=== PATIENT | female | born 1940 | race Caucasian/White ===

== ENCOUNTER 2025-01-30 16:48 | Emergency (ER) | payer MEDICARE, SELFPAY ==
[2025-01-30] VITALS (10 sets, daily range): BP systolic 120–242; BP diastolic 88–125; PULSE 72–92; RESP 13–28; TEMP 36.2; O2SAT 97–98
--- NOTE | 2025-01-30 16:49 | DI.RAD.S_ITS ---
PROCEDURE: XR CHEST 1V INDICATIONS: chest pain TECHNIQUE: One view of the chest was acquired. COMPARISON: None. FINDINGS: Surgical changes and devices: None. Lungs and pleura: Lungs are clear. Emphysematous change. No pleural effusions or pneumothorax. Mediastinum: Mediastinal contours appear normal. Heart size is normal. Bones and chest wall: No suspicious bony lesions. Overlying soft tissues appear unremarkable. IMPRESSION: COPD. No evidence acute pulmonary process. Dictated by: Albert Dias M.D. on 01/30/2025 at 18:07 Approved by: Albert Dias M.D. on 01/30/2025 at 18:07
--- NOTE | 2025-01-30 16:55 | ED_ITS ---
HPI - Chest Pain <Jesus Lou DO Last Filed: 01/30/25 17:02> General Chief Complaint: Chest Pain Stated Complaint: Chest px Time Seen by Provider: 01/30/25 16:49 History of Present Illness HPI narrative: 82-year-old female without any significant past medical history comes into the ED from home for evaluation of chest pain, she states it has been ongoing intermittent for the past several days, states that she currently is not having any pain now, states it started spontaneously last for only a few seconds, he denies any other symptoms at this time such as headache visual disturbances shortness breath fever chills nausea vomiting abdominal pain or any other GI/ symptoms. Related Data Previous Rx's Medication Instructions Recorded cephalexin 500 mg capsule 500 mg PO TID #9 caps 01/30/25 Allergies Allergy/AdvReac Type Severity Reaction Status Date / Time No Known Drug Allergies Allergy Verified 01/30/25 17:01 Review of Systems <Jesus DO Carmine - Last Filed: 01/30/25 17:02> Review of Systems Narrative: General: Denies fever, chills, weight loss HEENT: Denies headache, eye drainage, eye irritation, head trauma, sore throat, voice change Cardiovascular: Positive chest pain, denies palpitations, tachycardia Respiratory: Denies any shortness of breath, cough, wheeze, stridor GI/: Denies any abdominal pain, nausea, vomiting, diarrhea, bright red blood per rectum, melanotic stools, urinary frequency, urinary retention, dysuria, hematuria MSK: Denies any joint pain, muscle pains, swelling Skin: Denies any rashes, lesions, discoloration Neuro: Denies any headache, lightheadedness, dizziness, fainting, weakness Psych: Denies SI/HI Patient History <Jesus Lou DO - Last Filed: 01/30/25 17:02> Social History Smoking Status: Unknown if ever smoked Exam <Jesus Lou DO Last Filed: 01/30/25 17:02> Narrative Exam Narrative: General: Cooperative, well-developed, not in acute distress HEENT: Normocephalic, atraumatic, PERRLA, normal sclera, eyelids normal Neck: Active full range of motion, atraumatic Chest: Normal to inspection, negative crepitus, no overlying erythema ecchymosis Respiratory: Normal respiratory effort, not in acute respiratory distress, clear to auscultation bilaterally negative cough, wheeze, tachypnea, rhonchi, rales Cardiology: Regular rate rhythm negative gallop, murmur, rubs GI/: No tenderness to palpation, soft, non rigid, normal to inspection, exam deferred MSK: Full active range of motion in all 4 extremities, atraumatic, no tenderness to palpation of any bony prominences Skin: No rashes or lesions noted Neuro: Alert awake oriented x3, moves all 4 extremities spontaneously, cranial nerves intact, able to answer all questions appropriately follows commands appropriately Psych: Cooperative, negative suicidal or homicidal ideations Initial Vital Signs Initial Vital Signs: Vital Signs Temperature 97.2 F L 01/30/25 16:50 Pulse Rate 92 H 01/30/25 16:50 Respiratory Rate 13 01/30/25 16:50 Blood Pressure 242/113 H 01/30/25 16:50 Pulse Oximetry 97 01/30/25 16:50 Oxygen Delivery Method Room Air 01/30/25 16:50 <Mireya Corral MD - Last Filed: 01/30/25 20:05> Initial Vital Signs Initial Vital Signs: Vital Signs Temperature 97.2 F L 01/30/25 16:50 Pulse Rate 92 H 01/30/25 16:50 Respiratory Rate 13 01/30/25 16:50 Blood Pressure 242/113 H 01/30/25 16:50 Pulse Oximetry 97 01/30/25 16:50 Oxygen Delivery Method Room Air 01/30/25 16:50 Course <Jesus Lou DO - Last Filed: 01/30/25 17:02> Orders Ordered: ED Orders 01/30/25 16:49 XR chest 1V Stat EKG-12 Lead Stat 01/30/25 17:05 Complete Blood Count AUTO DIFF Stat Comprehensive Metabolic Panel Stat Lipase Stat MAG [Magnesium] Stat Troponin & CK Cardiac Panel Stat 01/30/25 17:12 Urine Culture Stat Urine Microscopic Stat 01/30/25 18:57 Trop I [Troponin I] Stat Discontinued Medications Aspirin (Aspirin 81 Mg Chew Tab) 324 mg PO NOW ONE Stop: 01/30/25 16:50 Last Admin: 01/30/25 17:06 Dose: 324 mg Documented By: SALTY Ceftriaxone Sodium 1,000 mg/ (Sodium Chloride) 100 mls @ 200 mls/hr IV NOW ONE Stop: 01/30/25 17:34 Last Infusion: 01/30/25 18:22 Dose: Infused Documented By: Admin: 01/30/25 17:42 Dose: 200 mls/hr Documented By: ANAND Vital Signs Vital signs: Vital Signs - 8 hr 01/30/25 16:50 01/30/25 16:54 01/30/25 16:58 Temperature 97.2 F L Pulse Rate 92 H 90 Respiratory Rate 13 Blood Pressure 242/113 H Pulse Oximetry 97 98 98 Oxygen Delivery Method Room Air 01/30/25 16:58 01/30/25 17:00 01/30/25 17:00 Temperature Pulse Rate 86 Respiratory Rate 28 H Blood Pressure 242/113 H 235/106 H Pulse Oximetry 98 Oxygen Delivery Method 01/30/25 17:30 01/30/25 17:30 Temperature Pulse Rate 81 Respiratory Rate 26 H Blood Pressure 218/101 H Pulse Oximetry 97 Oxygen Delivery Method <Mireya Corral MD - Last Filed: 01/30/25 20:05> Orders Ordered: ED Orders 01/30/25 16:49 XR chest 1V Stat EKG-12 Lead Stat 01/30/25 17:05 Complete Blood Count AUTO DIFF Stat Comprehensive Metabolic Panel Stat Lipase Stat MAG [Magnesium] Stat Troponin & CK Cardiac Panel Stat 01/30/25 17:12 Urine Culture Stat Urine Microscopic Stat 01/30/25 18:57 Trop I [Troponin I] Stat Discontinued Medications Aspirin (Aspirin 81 Mg Chew Tab) 324 mg PO NOW ONE Stop: 01/30/25 16:50 Last Admin: 01/30/25 17:06 Dose: 324 mg Documented By: SALTY Ceftriaxone Sodium 1,000 mg/ (Sodium Chloride) 100 mls @ 200 mls/hr IV NOW ONE Stop: 01/30/25 17:34 Last Infusion: 01/30/25 18:22 Dose: Infused Documented By: Admin: 01/30/25 17:42 Dose: 200 mls/hr Documented By: ANAND Vital Signs Vital signs: Vital Signs - 8 hr 01/30/25 16:50 01/30/25 16:54 01/30/25 16:58 Temperature 97.2 F L Pulse Rate 92 H 90 Respiratory Rate 13 Blood Pressure 242/113 H Pulse Oximetry 97 98 98 Oxygen Delivery Method Room Air 01/30/25 16:58 01/30/25 17:00 01/30/25 17:00 Temperature Pulse Rate 86 Respiratory Rate 28 H Blood Pressure 242/113 H 235/106 H Pulse Oximetry 98 Oxygen Delivery Method 01/30/25 17:30 01/30/25 17:30 Temperature Pulse Rate 81 Respiratory Rate 26 H Blood Pressure 218/101 H Pulse Oximetry 97 Oxygen Delivery Method MDM - Chest Pain <Jesus Lou DO - Last Filed: 01/30/25 17:02> Differential Diagnosis Differential diagnosis: Likely fracture of rib, pneumothorax, st elevation myocardial infarction, costochondritis, chest pain and other (Electrolyte abnormality, pneumonia, ACS) Lab Data 01/30/25 17:05 01/30/25 17:05 Labs: Lab Results 01/30/25 01/30/25 01/30/25 Range/Units 17:05 17:12 18:57 WBC 9.9 (4.5-11.0) X10^3/uL RBC 4.18 (4.0-5.2) X10^6/uL Hgb 13.5 (12.0-16.0) g/dL Hct 40.0 (36-46) % MCV 95.9 (80-100) fL MCH 32.3 (26-34) PG MCHC 33.7 (30-36) % RDW 14.0 (11.6-14.8) % Plt Count 286 (150-400) X10^3/uL Neut % (Auto) 62.2 (50-75) % Lymph % (Auto) 26.1 (25-40) % [place] % (Auto) 9.2 (3-14) % Eos % (Auto) 1.7 L (2-4) % Baso % (Auto) 0.8 (0-2) % Neut # (Auto) 6200 (4787-3100) /uL Lymph # (Auto) 2600 (5558-8398) /uL [place] # (Auto) 900 (0-900) /uL Eos # (Auto) 200 (0-450) /uL Baso # (Auto) 100 (0-100) /uL Sodium 139 (137-145) mmol/L Potassium 4.4 (3.4-5.1) mmol/L Chloride 103 (98-107) mmol/L Carbon Dioxide 27 (22-32) mmol/L BUN 32 H (7-17) mg/dL Creatinine 0.86 (0.52-1.04) mg/dL Estimated GFR > 60 (>60) mL/min BUN/Creatinine Ratio 37.2 H (6-22) Glucose 147 H (80-110) mg/dL Calcium 9.6 (8.4-10.2) mg/dL Magnesium 2.2 (1.6-2.3) mg/dL Total Bilirubin 0.5 (0.2-1.3) mg/dL AST 45 H (14-36) IU/L ALT 42 H (<35) IU/L Alkaline Phosphatase 179 H (38-126) U/L Total Creatine Kinase 40 (30-135) U/L Troponin I 0.016 0.022 (0.01-0.034) ng/mL Total Protein 7.9 (6.3-8.2) g/dL Albumin 4.5 (3.5-5.0) g/dL Globulin 3.4 (1.7-4.1) g/dL Albumin/Globulin Ratio 1.3 (1.0-2.8) Lipase 84 (23-300) U/L Urine RBC None seen (0-5/HPF) Urine WBC 10-30/hpf H (0-5/HPF) Ur Squamous Epith Cells 0-1 /hpf (0-5/HPF) Urine Bacteria Many (>30) H (None) Ur Culture Indicated? Specimen cultured Vol Urine Centrifuged 10ml (spun) Urine Dip Bedside Urine Glucose Negative Bedside Urine Bilirubin - Negative Bedside Urine Ketone - Negative Urine Specific [place] 1.015 Bedside Urine Occult Blood - Negative Bedside Urine pH 6.0 Bedside Urine Protein - Negative Bedside Urine Urobilinogen - Negative Bedside Urine Nitrite + Positive Bedside Urine Leukocytes + 70 Esterase ECG Data Interpretation: EKG interpreted ED physician sinus 88 beats per minute, QTC [address] changes no STEMI MDM Narrative Medical decision making narrative: 84-year-old female without any significant past medical history comes into the ED from home for evaluation of intermittent chest pain ongoing presents with a past few days, at this time and patient not having any chest pain, she states that the symptoms started spontaneously nothing making it better or worse, he denies any other symptoms at this time. Patient did have lab work imaging EKG performed here in the emergency department. <Mireya Corral MD - Last Filed: 01/30/25 20:05> Lab Data Labs: Lab Results 01/30/25 01/30/25 01/30/25 Range/Units 17:05 17:12 18:57 WBC 9.9 (4.5-11.0) X10^3/uL RBC 4.18 (4.0-5.2) X10^6/uL Hgb 13.5 (12.0-16.0) g/dL Hct 40.0 (36-46) % MCV 95.9 (80-100) fL MCH 32.3 (26-34) PG MCHC 33.7 (30-36) % RDW 14.0 (11.6-14.8) % Plt Count 286 (150-400) X10^3/uL Neut % (Auto) 62.2 (50-75) % Lymph % (Auto) 26.1 (25-40) % [place] % (Auto) 9.2 (3-14) % Eos % (Auto) 1.7 L (2-4) % Baso % (Auto) 0.8 (0-2) % Neut # (Auto) 6200 (6646-3828) /uL Lymph # (Auto) 2600 (5651-0499) /uL [place] # (Auto) 900 (0-900) /uL Eos # (Auto) 200 (0-450) /uL Baso # (Auto) 100 (0-100) /uL Sodium 139 (137-145) mmol/L Potassium 4.4 (3.4-5.1) mmol/L Chloride 103 (98-107) mmol/L Carbon Dioxide 27 (22-32) mmol/L BUN 32 H (7-17) mg/dL Creatinine 0.86 (0.52-1.04) mg/dL Estimated GFR > 60 (>60) mL/min BUN/Creatinine Ratio 37.2 H (6-22) Glucose 147 H (80-110) mg/dL Calcium 9.6 (8.4-10.2) mg/dL Magnesium 2.2 (1.6-2.3) mg/dL Total Bilirubin 0.5 (0.2-1.3) mg/dL AST 45 H (14-36) IU/L ALT 42 H (<35) IU/L Alkaline Phosphatase 179 H (38-126) U/L Total Creatine Kinase 40 (30-135) U/L Troponin I 0.016 0.022 (0.01-0.034) ng/mL Total Protein 7.9 (6.3-8.2) g/dL Albumin 4.5 (3.5-5.0) g/dL Globulin 3.4 (1.7-4.1) g/dL Albumin/Globulin Ratio 1.3 (1.0-2.8) Lipase 84 (23-300) U/L Urine RBC None seen (0-5/HPF) Urine WBC 10-30/hpf H (0-5/HPF) Ur Squamous Epith Cells 0-1 /hpf (0-5/HPF) Urine Bacteria Many (>30) H (None) Ur Culture Indicated? Specimen cultured Vol Urine Centrifuged 10ml (spun) Urine Dip Bedside Urine Glucose Negative Bedside Urine Bilirubin - Negative Bedside Urine Ketone - Negative Urine Specific [place] 1.015 Bedside Urine Occult Blood - Negative Bedside Urine pH 6.0 Bedside Urine Protein - Negative Bedside Urine Urobilinogen - Negative Bedside Urine Nitrite + Positive Bedside Urine Leukocytes + 70 Esterase MDM Narrative Medical decision making narrative: 84-year-old female without any significant past medical history comes into the ED from home for evaluation of intermittent chest pain ongoing presents with a past few days, at this time and patient not having any chest pain, she states that the symptoms started spontaneously nothing making it better or worse, he denies any other symptoms at this time. Patient did have lab work imaging EKG performed here in the emergency department. Chemistries show slightly elevated AST ALT and alk-phos with appropriate renal function CBC is unremarkable Initial and repeat troponins are both within normal limits Chest x-ray shows mild hyperexpansion consistent with COPD with no active pulmonary process Incidental urinary tract infection was found. She was treated with an initial dose of ceftriaxone in the emergency department. Will send her home with 3 additional days of Keflex. We will follow up with cultures At this time I am not finding any life-threatening explanation for her chest pain that has now entirely resolved. No evidence of acute coronary syndrome, pneumonia, pneumothorax, congestive heart failure, acute COPD exacerbation. Discussed use of Tylenol for future pain control. There was no indication for additional imaging, further workup or hospitalization at this time and she is Discharge Plan Departure Patient Disposition: Home Clinical Impression: Atypical chest pain Urinary tract infection Qualifiers: Urinary tract infection type: acute cystitis Hematuria presence: with hematuria Qualified Code(s): N30.01 - Acute cystitis with hematuria Instructions: DI for Urinary Tract Infection (UTI) Activity Restrictions/Additional Instructions: Thank you for coming in today I did not find a life-threatening explanation for your chest pain. There was no evidence of heart attack or heart attack like syndrome, pneumonia, collapsed lung, congestive heart failure or other findings that would need additional workup or hospitalization. If you have this pain returned in the future, it is okay to try some Tylenol to see if it helps relieve the pain We did, incidentally, find a bladder infection. You were given a single dose of ceftriaxone in the emergency department and I am going to give you 3 additional days of cephalexin to make sure that the entire urinary tract infection resolves. If cultures return and show you need a different antibiotic, we will contact you If you find that you are getting worse or develop any new symptoms, please feel free to return to the emergency department for further evaluation. Prescriptions: New cephalexin 500 mg capsule 500 mg PO TID Qty: 9 0RF Referrals: Miscellaneous,DoctorMD [Primary Care Provider] - Stand Alone Forms: Patient Portal/API/Survey
--- NOTE | 2025-01-30 17:00 | EKG_ITS ---
[facility] [address], [place] [address] Test Date: 2025-01-30 Pat Name: Lexi Maxwell Department: [facility] Room: Gender: Female [employer] Class[employer] Aide: : 1940 Requested By: Order Number: [id number] Reading MD: Nestor Arndt MD Measurements Intervals [place] Rate: 88 P: 48 CO: 178 QRS: 27 QRSD: 96 T: 14 QT: 366 QTc: 442 Interpretive Statements Normal sinus rhythm Minimal voltage criteria for LVH, may be normal variant ( Panacea product ) NO PRIOR TRACING Electronically Signed On 01-31-2025 8:37:37 PDT by Nestor Arndt MD
[2025-01-30] MEDS: ASPIRIN 81 MG CHEW TAB 324 MG PO (17:06)
[2025-01-30 17:24] LABS: Add Manual Diff / Slide Review NO; Basophils Absolute Auto 100 /uL (0-100); Basophils Percent Auto 0.8 % (0-2); Eosinophils Absolute Auto 200 /uL (0-450); Eosinophils Percent Auto 1.7 % (2-4); Hemoglobin 13.5 g/dL (12.0-16.0); Lymphocytes Absolute Auto 2600 /uL (1100-4500); Lymphocytes Percent Auto 26.1 % (25-40); Mean Corpuscular HGB Conc 33.7 % (30-36); Mean Corpuscular Hemoglobin 32.3 PG (26-34); Mean Corpuscular Volume 95.9 fL (80-100); Monocytes Absolute Auto 900 /uL (0-900); Monocytes Percent Auto 9.2 % (3-14); Neutrophils Absolute Auto 6200 /uL (1500-7000); Neutrophils Percent Auto 62.2 % (50-75); Platelet Count 286 X10^3/uL (150-400); Red Blood Cell Count 4.18 X10^6/uL (4.0-5.2); White Blood Cell Count 9.9 X10^3/uL (4.5-11.0)
[2025-01-30 17:27] LABS: Alanine Aminotransferase 42 IU/L (<35); Albumin 4.5 g/dL (3.5-5.0); Albumin Globulin Ratio 1.3 (1.0-2.8); Alkaline Phosphatase 179 U/L (38-126); Aspartate Aminotransferase 45 IU/L (14-36); BUN Creatinine Ratio 37.2 (6-22); Bilirubin Total 0.5 mg/dL (0.2-1.3); Blood Urea Nitrogen 32 mg/dL (7-17); Calcium 9.6 mg/dL (8.4-10.2); Carbon Dioxide 27 mmol/L (22-32); Chloride 103 mmol/L (98-107); Creatine Kinase 40 U/L (30-135); Estimated Glomerular Filt Rate > 60 mL/min (>60); Globulin 3.4 g/dL (1.7-4.1); Glucose 147 mg/dL (80-110); HEMOLYSIS 19 (0-50); Lipase 84 U/L (23-300); Potassium 4.4 mmol/L (3.4-5.1); Sodium 139 mmol/L (137-145); Total Protein 7.9 g/dL (6.3-8.2)
[2025-01-30 17:28] LABS: Magnesium 2.2 mg/dL (1.6-2.3)
[2025-01-30 17:29] LABS: Urine Volume 10mL (spun)
[2025-01-30 17:31] LABS: Bacteria Urine Many (>30); Culture Indicated Urine Specimen Cultured; RBC Urine None Seen (0-5/HPF); Squamous Epithelial Cell Urine 0-1 /HPF (0-5/HPF); WBC Urine 10-30/HPF (0-5/HPF)
[2025-01-30 17:38] LABS: Troponin I 0.016 ng/mL (0.01-0.034)
[2025-01-30] MEDS: cefTRIAXone 1,000 MG in SODIUM CHLORIDE 0.9% 100 ML 200 MG IV (17:42)
[2025-01-30 19:29] LABS: Troponin I 0.022 ng/mL (0.01-0.034)
--- NOTE | 2025-01-30 21:45 | PC.NURSE ---
Addendum entered by Raegan Park CNA 01/30/25 22:38: BETHEL note: At 2222 Officer Rodolfo from the [facility] called. Asked what the address for Ms. Maxwell was again. There is no house at [address] [place] [address]. This is the address she gave to us. Officer Rodolfo and I started to look for Jatinder Damico or Flavio Damico. Patient has not been to this hospital before. We asked patient for any identification or anything with her address on it, patient had nothing but an older checkbook from [place]. She has her 's social security card on her, along with a lot of older photos. I looked in our system for any record of a Jatinder Damico, and found nothing. We asked for Jatinder's birthday and Officer Rodolfo was able to find a Jatinder Calabrese Damico in [place] and a Jatinder Damico with no phone number at [address] Tomeka Sanchez RN called [facility] to see if they had any record of this patient, which they don't. Officer Rodolfo is going to check on this person at [address] pullboat engineer Tomeka, RABIA Jones, and Dr. Corral are aware of the situation. Original Note: INFORMATION ASSURANCE ANALYST note: Attempting to contact patient's son, Jatinder (Hao Damico, because patient is ready for discharge. Mr. Damico didn't leave a phone number with staff or in the emergency contact area. Patient has numbers for Mr. Damico that are either disconnected, are the wrong number, or have a constant busy signal. Patient becoming increasingly concerned about her son not being able to pick her up, she is tearful at times. I called the [facility] emergent number to do a welfare check the house where patient says she lives with her son.
--- NOTE | 2025-01-30 21:46 | PC.NURSE ---
The patients son left shortly after pt was roomed, not contact info available for him, several attempt to locate a current phone number without success. Pt was ready for discharge at 2004.
--- NOTE | 2025-01-30 22:41 | PC.NURSE ---
Pt has been given food and fluids, she has been encouraged to rest in her room, frequently asking about her son and if he is here. She is getting up independently to use the bathroom, makes her needs known.
== END 2025-01-30 23:07 | disposition home or self-care (01) ==
PROVIDERS: Student in an Organized Health Care Education/Training Program; Emergency Provider Emergency Medicine
DX: R07.89 Other chest pain (principal); N30.01 Acute cystitis with hematuria
CPT/HCPCS: 36415; 71045; 80053; 81003; 81015; 82550; 83690; 83735; 84484; 85025; 87077; 87086; 87186; 93005; 93010; 96365; 99284; J0696